=== PATIENT | male | born 1990 | race Caucasian/White ===

== ENCOUNTER → 2022-07-07 10:57 | Outpatient (CLI) | payer OTHER ==
[~2022-07-07 10:57] MED LIST: LEVAQUIN750 MG PO; RESPTHERAMACH; TUSSIONEX PENNKI5 ML PO; [UNRECOGNIZED DRUG - OTHER] PO
== END | disposition home or self-care (01) ==
LOC: LAB 10:57
PROVIDERS: ATTEND Obstetrics & Gynecology
DX: Z20.828 Contact with and (suspected) exposure to other viral communicable diseases (principal); Z20.818 Contact with and (suspected) exposure to other bacterial communicable diseases